=== PATIENT | female | born 1950 | race Caucasian/White ===

== ENCOUNTER 2020-01-16 07:20 | Day surgery (SDC) | payer OTHER ==
[2020-01-09 13:49] LABS: Basophils % 0.8 % (0-1.3); Hematocrit 40.5 % (36.0-45.0); Lymphocytes % 29.5 % (15.3-44.8); MPV 7.5 fL (7.6-11.3); RBC Red Blood Cell Count 4.33 M/uL (3.86-4.86)
[2020-01-09 14:14] LABS: BUN Blood Urea Nitrogen 5 mg/dL (7-18); Bicarbonate 28 mmol/L (21-32); Glucose Level 83 mg/dL (74-106); Potassium 4.9 mmol/L (3.5-5.1); Sodium Level 128 mmol/L (136-145)
--- NOTE | 2020-01-09 18:57 | EKG ---
Test Date: 2020-01-09 Test Time: 12:19:09 Clay Temperer: [facility] MEASUREMENT RESULTS: Intervals: Rate: 60 ME: 170 QRSD: 78 QT: 416 QTc: 416 [place]: P: 73 ME: 170 QRS: 36 T: 57 INTERPRETIVE STATEMENTS: Normal sinus rhythm Normal ECG No previous ECG available for comparison Electronically Signed On 01-09-20 18:56:11 CDT by Tom Telles
[2020-01-16] MEDS ORDERED: Ringers Lactate 1,000 ML IV ONE (08:00)
[2020-01-16] MEDS ORDERED: CEFAZOLIN/SWI 1gm 1 GM/10 ML SYR ONE (08:01)
[2020-01-16] MEDS ORDERED: METHYLENE BLUE 0.5% 10 ML AMP ONE (09:20)
[2020-01-16] MEDS ORDERED: MIDAZOLAM HCL 2 MG/2 ML INJ ONE (09:31)
[2020-01-16] MEDS ORDERED: FENTANYL CITR 100 MCG/2 ML ONE (09:31)
[2020-01-16] MEDS ORDERED: propofoL 200 MG/20 ML VIAL IV ONE (09:31)
[2020-01-16] MEDS ORDERED: LIDOCAINE 1% MPF 5 ML VIAL ONE (09:31)
[2020-01-16] MEDS ORDERED: ROCURONIUM 50 MG/5 ML VIAL IV ONE (09:31)
--- NOTE | 2020-01-16 11:04 | RAD REPORT ---
EXAM DESCRIPTION: NM - Lymphoscintigraphy - 01/16/2020 8:51 am CLINICAL HISTORY: BREAST CA, pre-surgical lymphoscintigraphy COMPARISON: No comparisons FINDINGS: Patient was administered 4 periareolar injections of 0.1 millicuries technetium 99 M sulfu r colloid. Single image was obtained. Injection time was 0835 hours
[2020-01-16] MEDS ORDERED: CODEINE 30MG/APAP 300MG TAB PO ONE (13:05)
[2020-01-16 15:11] VITALS: TEMP 97.7
[2020-01-16 15:22] VITALS: BP 142/54; O2SAT 97
--- NOTE | 2020-01-16 20:46 | OP ---
Date of Procedure: 01/16/2020 Surgeon: Selvin Galloway MD Ground Operations Crew Member: JAMES Stauffer. Preoperative Diagnosis: Right breast cancer. Postoperative Diagnosis: Right breast cancer. Procedure: [place] node biopsy and right breast mastectomy. Estimated Blood Loss: Minimal. Specimens: [place] node negative for metastatic disease. Although there was a second lymph nodes w [facility] is pending permanent sections, could not be definitive whether there was any metastatic disease or not. Because of the uncertainty we opted not to do the axillary dissection until we do have a def initive answer. Other margins were free. Findings: As above. Anesthesia: General. Complications: None. Drains: ANGIE #10 flat. Patient tolerated the procedure in stable condition, taken to Recovery in good general condition. Procedure In Detail: Patient was brought to the OR and placed in supine position. General anesthesi a begun. Then under sterile condition methylene blue was injected around the nipple-areolar complex. Breast massage and prepped draped in the usual sterile fashion. Then the sentinel node was identif ied with counter all counts were recorded in the medical records and then a 3 cm incision was made in the right axilla and a blue lymph node was identified, deep to the subcutaneous tissue. Vascular cl ips were used and then the lymph node was excised. There was another second lymph node with it that was removed as well and the preliminary report on the sentinel node was negative, however, on the sec ond lymph node there was some question, 1 of the cells having enlarged nuclei and pathology stated th at they would differ to permanent section for definitive diagnosis regarding that. At this time I fe lt like we should hold off on the x-ray dissection and wait for the definitive diagnosis. An ellipse of skin joining the 3 cm incision was made to include the nipple-areolar complex as well as the mass which was palpated in the upper outer quadrant of the right breast and then flaps were created super iorly to the clavicle medially to the sternal border inferior to the insertion of the rectus abdomini s muscle laterally to the anterior surface of the lateral latissimus dorsi. All breast tissue off th e pectoralis fascia was removed and sent to pathology after being appropriately labeled, margins were negative, the entire wound was irrigated. ANGIE drain, #10 flat was placed and secured with 3-0 nylon under the flap and then 2-0 chromic and 3-0 chromic used was used to approximate the subcutaneous tis darrell and close the skin. Sterile dressing was applied. Patient was awakened and taken to Recovery in good general condition. Discharge Note: Patient will go to day surgery and home when stable. Disposition: Home. Condition: Stable. Discharge Instructions: Resume home medications and diet. Activity as tolerated. No heavy lifting. Keep dressing clean and dry. Follow up in my office in a week. Call for appointment. Sponge bath e only. Record ANGIE output q.12, bring record to office. Tylenol No.3 one tablet p.o. q.4 p.r.n. pain . Keflex 500 mg p.o. q.6. /MODL Voice ID: [id number] Report ID: [id number]
== END 2020-01-16 14:25 | disposition home or self-care (01) ==
LOC: DS 07:20 → OR 07:20 → DS 14:25
PROVIDERS: ATTEND Surgery
PROC: 0HBT0ZZ Excision of Right Breast, Open Approach (ICD-10-PCS; 2020-01-16)
PROC: 07B50ZX Excision of Right Axillary Lymphatic, Open Approach, Diagnostic (ICD-10-PCS; principal; 2020-01-16 10:00)
DX: C50.911 Malignant neoplasm of unspecified site of right female breast (principal); Z11.59 Encounter for screening for other viral diseases; Z17.1 Estrogen receptor negative status [ER-]
CPT/HCPCS: 38525; 19303; 38900; 93005; 85025; 80048; 36415; 88331 ×2; 88332; 88307; 88309; 78195; J2704; J2250; J3010; J0690; J7120; A9541; 88305

== ENCOUNTER 2020-03-26 08:37 | Day surgery (SDC) | payer OTHER ==
[2020-03-19 15:21] LABS: Absolute Lymphocytes (CBC) 1.6 K/uL (0.7-4.9); Basophils % 1.1 % (0-1.3); Hematocrit 37.6 % (36.0-45.0); Lymphocytes % 34.8 % (15.3-44.8); MPV 7.7 fL (7.6-11.3); RBC Red Blood Cell Count 4.09 M/uL (3.86-4.86)
[2020-03-19 16:05] LABS: BUN Blood Urea Nitrogen 7 mg/dL (7-18); Bicarbonate 27 mmol/L (21-32); Glucose Level 93 mg/dL (74-106); Potassium 4.3 mmol/L (3.5-5.1); Sodium Level 130 mmol/L (136-145)
[2020-03-26] MEDS ORDERED: Ringers Lactate 1,000 ML IV ONE (09:11)
[2020-03-26] MEDS ORDERED: CEFAZOLIN/SWI 1gm 1 GM/10 ML SYR ONE (09:11)
[2020-03-26] MEDS ORDERED: Phenylephrine HCl 10 MG/ML 1 ML VIAL ONE (09:40)
[2020-03-26] MEDS ORDERED: NS 0.9% VIAL 20 ML ONE (09:40)
[2020-03-26] MEDS ORDERED: propofoL 200 MG/20 ML VIAL IV ONE (09:59)
[2020-03-26] MEDS ORDERED: FENTANYL CITR 100 MCG/2 ML ONE (10:00)
[2020-03-26] MEDS ORDERED: MIDAZOLAM HCL 2 MG/2 ML INJ ONE (10:00)
[2020-03-26] MEDS ORDERED: LIDOCAINE 1% MPF 5 ML VIAL ONE (10:00)
[2020-03-26] MEDS: LIDOCAINE 1% MPF 30 ML VIAL ONE ×2 (10:01→10:12)
[2020-03-26] MEDS ORDERED: KETOROLAC 30 MG/ML INJ ONE (10:15)
[2020-03-26] MEDS: HEPARIN 5000 UNIT/ML 1 ML VIAL ONE ×2 (10:21→10:22)
--- NOTE | 2020-03-26 11:08 | RAD REPORT ---
EXAM DESCRIPTION: RAD - Chest Single View - 03/26/2020 11:03 am CLINICAL HISTORY: S/P PORT A CATH PLACEMENT Chest pain. COMPARISON: No comparisons FINDINGS: Portable technique limits examination quality. Emphysematous changes are present throughout the lungs. Left-sided venous catheter has tip in the SVC . No postprocedure pneumothorax. The heart is normal in size. No displaced fractures. IMPRESSION: No postprocedure pneumothorax.
--- NOTE | 2020-03-26 11:12 | RAD REPORT ---
EXAM DESCRIPTION: RAD - Fluoroscopy <1 Hour - 03/26/2020 10:45 am CLINICAL HISTORY: Venous catheter insertion. PORT A CATH COMPARISON: No comparisons FINDINGS: Fluoroscopic imaging is submitted from placement of a venous catheter. Details of the pro cedure not available. Fluoroscopy time: 1.3 minutes
[2020-03-26 11:33] VITALS: BP 159/52; TEMP 96.9; O2SAT 99
--- NOTE | 2020-03-26 11:49 | OP ---
Date of Procedure: 03/26/2020 Surgeon: Selvin Galloway MD Compression Molding Machine Operator: JAMES Reagan. Preoperative Diagnosis: Right breast cancer. Postoperative Diagnosis: Right breast cancer. Procedure: Placement of left IJ Port-A-Cath and interpretation of intraoperative fluoroscopy. Estimated Blood Loss: Minimal. Specimen: None. Findings: Normal anatomy. Anesthesia: MAC. Complications: None. Disposition: The patient tolerated the procedure in stable condition, taken to Recovery in good gene ral condition. Procedure In Detail: The patient was brought to the OR and placed in supine position. MAC anesthesi a begun. The patient was prepped and draped in usual sterile fashion. Lidocaine 1% infiltrated loca lly. An 18-gauge needle was used to access the left IJ vein. Guidewire was passed. Position was co nfirmed with fluoroscopy. A 3 cm counterincision was made on the left anterior chest pocket created. Tunneling device used to tunnel the catheter between the 2 wounds. Then, Seldinger technique used to enter the catheter under fluoroscopy and placed in the SVC under direct vision and then the cathet er cut to appropriate size attached to the Port-A-Cath device. Port-A-Cath device was attached to th e subcutaneous tissue with 3-0 Vicryl and then 3-0 chromic used to approximate the subcutaneous tissu e and close skin. Catheter flushed with heparin and packed with heparin with good blood flow. Steri le dressing was applied. The patient was awakened and taken to Recovery in good general condition. Chest x-ray has been ordered. If chest x-ray is okay, the patient will be discharged to home. Disposition: Home. Condition: Stable. Discharge Instructions: Resume home medications and diet. Activity as tolerated. No heavy lifting. Remove outer dressing in 2 days. Shower. Keep wound clean and dry. Keep Steri-Strips on at all t imes. Follow up in my office in 2 weeks. Call for appointment. [facility]. Tylenol No.3 one tablet p.o. q.4 p.r.n. pain. /MODL Voice ID: [id number] Report ID: [id number]
[2020-03-26] MEDS ORDERED: HYDROCODONE/APAP 7.5/325 MG TAB ONE (11:55)
== END 2020-03-26 12:18 | disposition home or self-care (01) ==
LOC: OR 08:37
PROVIDERS: ATTEND Surgery
PROC: 02HV33Z Insertion of Infusion Device into Superior Vena Cava, Percutaneous Approach (ICD-10-PCS; principal; 2020-03-26 10:00)
DX: C50.911 Malignant neoplasm of unspecified site of right female breast (principal)
CPT/HCPCS: 85025; 80048; 36415; 71045; 36561; J2704; J1644 ×2; J2250; J3010; J0690; J7120; C1788; 76000; J2370

== ENCOUNTER 2020-10-18 06:59 | Day surgery (SDC) | payer OTHER ==
[2020-10-02 09:57] LABS: Absolute Lymphocytes (CBC) 2.1 K/uL (0.7-4.9); Basophils % 1.1 % (0-1.3); Hematocrit 33.6 % (36.0-45.0); Lymphocytes % 21.6 % (15.3-44.8); MPV 6.8 fL (7.6-11.3); RBC Red Blood Cell Count 3.89 M/uL (3.86-4.86)
[2020-10-18] MEDS ORDERED: Ringers Lactate 1,000 ML IV ONE (07:28)
[2020-10-18] MEDS: LIDOCAINE 1% MPF 30 ML VIAL ONE ×2 (07:31→08:37)
[2020-10-18] MEDS ORDERED: CEFAZOLIN/SWI 1gm 1 GM/10 ML SYR ONE (08:21)
[2020-10-18] MEDS ORDERED: MIDAZOLAM HCL 2 MG/2 ML INJ ONE (08:28)
[2020-10-18] MEDS ORDERED: FENTANYL CITR 100 MCG/2 ML ONE (08:28)
[2020-10-18] MEDS ORDERED: propofoL 200 MG/20 ML VIAL IV ONE (08:28)
[2020-10-18] MEDS ORDERED: LIDOCAINE 1% MPF 5 ML VIAL ONE (08:28)
[2020-10-18] MEDS ORDERED: KETOROLAC 30 MG/ML INJ ONE (09:00)
[2020-10-18] MEDS ORDERED: Mastisol Adhesive Liq ONE (09:01)
[2020-10-18] MEDS ORDERED: HYDROCODONE/APAP 7.5/325 MG TAB ONE (09:36)
[2020-10-18 10:12] VITALS: BP 114/50; TEMP 97; O2SAT 97
--- NOTE | 2020-10-18 11:25 | OP ---
Date of Procedure: 10/18/2020 Surgeon: Selvin Galloway MD Slab Worker: None. Preoperative Diagnosis: Right breast cancer. Postoperative Diagnosis: Right breast cancer, status post left chest Port-A-Cath. Procedure Performed: Removal of left chest Port-A-Cath. Estimated Blood Loss: Minimal. Specimen: Port-A-Cath device. Findings: As above. Anesthesia: MAC. Complications: None. Disposition: The patient tolerated the procedure in stable condition and taken to Recovery in good g eneral condition. Operative Note: The patient was brought to the OR and placed in supine position. MAC anesthesia was begun. The patient was prepped and draped in the usual sterile fashion. Marcaine 0.5% was infiltra nadine locally. A 15-blade was used to make a 3 cm incision over the left chest over the Port-A-Cath. Subcutaneous tissue was divided. Port-A-Cath device was identified and freed from surrounding tissue with sharp and blunt dissection and removed and sent to pathology for identification. Wound was irr igated. Bleeding controlled with cautery and then 3-0 chromic was used to approximate the subcutaneo us tissue and close the skin. Sterile dressing was applied. The patient was awakened and taken to R ecovery in good general condition. Discharge Note: The patient will go to Day Surgery and home when stable. Disposition: Home. Condition: Stable. Discharge Instructions: Resume home medications and diet. Activity as tolerated. No heavy lifting. Remove outer dressing in 2 days. Shower. Keep wound clean and dry. Follow up in my office in 3 w eeks. Call for appointment. Tylenol No.3 one tablet p.o. q.4 p.r.n. pain. Keep Steri-Strips on at a ll times. /MODL Voice ID: [id number] Report ID: [id number]
== END 2020-10-18 10:00 | disposition home or self-care (01) ==
LOC: OR 06:59
PROVIDERS: ATTEND Surgery
PROC: 0JPT0WZ Removal of Totally Implantable Vascular Access Device from Trunk Subcutaneous Tissue and Fascia, Open Approach (ICD-10-PCS; principal; 2020-10-18 08:15)
DX: Z45.2 Encounter for adjustment and management of vascular access device (principal); C50.911 Malignant neoplasm of unspecified site of right female breast; Z20.822 Contact with and (suspected) exposure to COVID-19
CPT/HCPCS: 85025; 36415; 88300; 36590; U0002; J2704; J2250; J3010; J0690; J7120